=== PATIENT | male | born 1940 | race Caucasian/White ===

== ENCOUNTER 2024-09-22 12:01 | Emergency (ER) | payer MEDICARE, OTHER ==
[~2024-09-22] VITALS: Ht 177.8 cm; Wt 90.7 kg
--- OUTSIDE RECORDS SUMMARY | ~2024-09-22 | XMS | Continuity of Care Document ---
Demographics + + + | Address | [address] | | | [place] [address] | + + + | Preferred Language | Unknown | + + + | Marital Status | | + + + | Mormonism Affiliation | Unknown | + + + | Race | White | + + + | Ethnic Group | Not or | + + + Author + + + | Author | [facility] | + + + | Organization | [facility] | + + + | Address | [address] | | | [place] [address] | + + + | Phone | | + + + Care Team Providers + + + + | [employer] Name | Role | Phone | + + + + Unavailable | Unavailable | + + + + Unavailable | Unavailable | + + + + Allergies No information. Encounters No information. Functional Status No information. Immunizations No information. Medications + + + + | date | description | facility | + + + + | 2024-08-13 00:00 | apixaban 5 mg oral tablet | [facility] | + + + + | 2024-08-13 00:00 | eliquis 5 mg oral tablet | [facility] | + + + + | 2024-07-14 00:00 | lisinopril 5 mg oral | [facility] | | | tablet | | + + + + | 2024-07-14 00:00 | lisinopril 5 mg oral | [facility] | | | tablet | | + + + + | 2024-08-13 00:00 | isosorbide mononitrate 60 | [facility] | | | mg 24 hr extended release | | | | oral tablet | | + + + + | 2024-06-29 00:00 | omega-3 fatty acids | [facility] | + + + + | 2024-07-05 00:00 | omega-3 fatty acids | [facility] | + + + + | 2024-08-06 00:00 | omega-3 fatty acids | [facility] | + + + + | 2024-08-16 00:00 | omega-3 fatty acids | [facility] | + + + + | 2024-06-25 00:00 | pregabalin 75 mg oral | [facility] | | | capsule | | + + + + | 2024-08-06 00:00 | pregabalin 75 mg oral | [facility] | | | capsule | | + + + + | 2024-08-06 00:00 | metformin hydrochloride | [facility] | | | 500 mg oral tablet | | + + + + | 2024-08-06 00:00 | metformin hydrochloride | [facility] | | | 500 mg oral tablet | | + + + + | 2024-08-13 00:00 | metformin hydrochloride | [facility] | | | 500 mg oral tablet | | + + + + | 2024-08-13 00:00 | 24 hr metoprolol succinate | [facility] | | | 100 mg (as metoprolol | | | | succinate 95 mg equivalent | | | | to 100 mg metoprolol | | | | tartrate) extended release | | | | oral tablet | | + + + + Problems + + + + | date | description | facility | + + + + | 2024-06-29 11:50:18 | 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, lumbar region | | | | | | + + + + | 2024-07-05 12:24:15 | Prescription Refill | [facility] | | | Request | | + + + + | 2024-07-14 12:52:23 | Essential (primary) | [facility] | | | hypertension | | + + + + | 2024-08-06 08:05:55 | 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, | | | | unspecified | | + + + + | 2024-08-06 08:06:23 | 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, lumbar region | | | | | | + + + + | 2024-08-13 16:02:04 | Follow Up | [facility] | + + + + | 2024-08-16 00:00 | recurrent falls (finding) | [facility] | + + + + | 2024-08-16 00:00 | Frequent falls | [facility] | + + + + | 2024-08-16 12:16:05 | 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, | | | | unspecified | | + + + + | 2024-08-16 12:16:05 | Old myocardial infarction | [facility] | + + + + | 2024-08-16 12:16:05 | Unspecified atrial flutter | [facility] | | | | | + + + + | 2024-08-16 12:16:05 | 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, lumbar region | | | | | | + + + + | 2024-08-16 12:16:05 | Repeated falls | [facility] | + + + + | 2024-08-31 16:34:55 | Dizziness and giddiness | [facility] | + + + + | 2024-09-21 08:44:40 | 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, lumbar region | | | | | | + + + + Procedures + + + + | date | description | facility | + + + + | 2024-08-14 00:00 | MICROALBUMIN/CREATININE | [facility] | | | RATIO, URINE, RANDOM | | + + + + | 2024-08-14 00:00 | BLOOD COUNT COMPLETE | [facility] | | | AUTO&AUTO DIFRNTL WBC | | + + + + | 2024-08-14 00:00 | COMPREHENSIVE METABOLIC | [facility] | | | PANEL | | + + + + | 2024-08-14 00:00 | HEMOGLOBIN GLYCOSYLATED | [facility] | | | A1C | | + + + + | 2024-08-14 00:00 | BNP,NT PRO BNP | [facility] | + + + + Results/Labs +--------+--------+ +---------+--------+---------+ | test | date | facility | value | unit | notes | +--------+--------+ +---------+--------+---------+ + + | Result panel 1 | + + + + + + + + + | Specimen | (no date) | [facility] | (missing) | (missing) | (missing) | | collection | | [facility] | | | | | (procedure) | | | | | | + + + + + + + + + | Result panel 2 | + + + + + + + + + | Specimen | (no date) | [facility] | (missing) | (missing) | (missing) | | collection | | Medical | | | | | (procedure) | | | | | | + + + + + + + + + | Result panel 3 | + + + + + + + + + | Specimen | (no date) | [facility] | (missing) | (missing) | (missing) | | collection | | Medical | | | | | (procedure) | | | | | | + + + + + + + + + | Result panel 4 | + + + + + + + + + | Specimen | (no date) | [facility] | (missing) | (missing) | (missing) | | collection | | Medical | | | | | (procedure) | | | | | | + + + + + + + + + | Result panel 5 | + + + + + + + + + | Specimen | (no date) | [facility] | (missing) | (missing) | (missing) | | collection | | Medical | | | | | (procedure) | | | | | | + + + + + + + + + | Result panel 6 | + + + + + +--------+-----+ + | | 2024-08-14 | [facility] | 43.0 | % | (missing) | | (unavailable | 02:44 | Medical | | | | | ) | | | | | | + + + +--------+-----+ + + + | Result panel 7 | + + + + + +--------+------+ + | | 2024-08-14 | [facility] | 99.1 | fl | (missing) | | (unavailable | 02:44 | Medical | | | | | ) | | | | | | + + + +--------+------+ + + + | Result panel 8 | + + + + + +--------+------+ + | | 2024-08-14 | [facility] | 32.9 | pg | (missing) | | (unavailable | 02:44 | Medical | | | | | ) | | | | | | + + + +--------+------+ + + + | Result panel 9 | + + + + + +--------+--------+ + | | 2024-08-14 | [facility] | 33.3 | g/dL | (missing) | | (unavailable | 02:44 | Medical | | | | | ) | | | | | | + + + +--------+--------+ + + + | Result panel 10 | + + + + + +--------+-----+ + | | 2024-08-14 | [facility] | 12.4 | % | (missing) | | (unavailable | 02:44 | Medical | | | | | ) | | | | | | + + + +--------+-----+ + + + | Result panel 11 | + + + + + +-------+ + + | | 2024-08-14 | [facility] | 228 | (missing) | (missing) | | (unavailable | 02:44 | Medical | | | | | ) | | | | | | + + + +-------+ + + + + | Result panel 12 | + + + + + +-------+------+ + | | 2024-08-14 | [facility] | 9.3 | fl | (missing) | | (unavailable | 02:44 | Medical | | | | | ) | | | | | | + + + +-------+------+ + + + | Result panel 13 | + + + + + +--------+-----+ + | | 2024-08-14 | [facility] | 48.0 | % | (missing) | | (unavailable | 02:44 | Medical | | | | | ) | | | | | | + + + +--------+-----+ + + + | Result panel 14 | + + + + + +--------+-----+ + | | 2024-08-14 | [facility] | 36.1 | % | (missing) | | (unavailable | 02:44 | Medical | | | | | ) | | | | | | + + + +--------+-----+ + + + | Result panel 15 | + + + + + +--------+-----+ + | | 2024-08-14 | [facility] | 11.1 | % | (missing) | | (unavailable | 02:44 | Medical | | | | | ) | | | | | | + + + +--------+-----+ + + + | Result panel 16 | + + + + + +-------+-----+ + | | 2024-08-14 | [facility] | 3.7 | % | (missing) | | (unavailable | 02:44 | Medical | | | | | ) | | | | | | + + + +-------+-----+ + + + | Result panel 17 | + + + + + +-------+-----+ + | | 2024-08-14 | [facility] | 0.9 | % | (missing) | | (unavailable | 02:44 | Medical | | | | | ) | | | | | | + + + +-------+-----+ + + + | Result panel 18 | + + + + + +-------+-----+ + | | 2024-08-14 | [facility] | 0.2 | % | (missing) | | (unavailable | 02:44 | Medical | | | | | ) | | | | | | + + + +-------+-----+ + + + | Result panel 19 | + + + + + +-------+-----+ + | | 2024-08-14 | [facility] | 0.0 | % | (missing) | | (unavailable | 02:44 | Medical | | | | | ) | | | | | | + + + +-------+-----+ + + + | Result panel 20 | + + + + + +-------+ + + | | 2024-08-14 | [facility] | 2.8 | (missing) | (missing) | | (unavailable | 02:44 | Medical | | | | | ) | | | | | | + + + +-------+ + + + + | Result panel 21 | + + + + + +-------+ + + | | 2024-08-14 | [facility] | 2.1 | (missing) | (missing) | | (unavailable | 02:44 | Medical | | | | | ) | | | | | | + + + +-------+ + + + + | Result panel 22 | + + + + + +-------+ + + | | 2024-08-14 | [facility] | 0.7 | (missing) | (missing) | | (unavailable | 02:44 | Medical | | | | | ) | | | | | | + + + +-------+ + + + + | Result panel 23 | + + + + + +-------+ + + | | 2024-08-14 | [facility] | 0.2 | (missing) | (missing) | | (unavailable | 02:44 | Medical | | | | | ) | | | | | | + + + +-------+ + + + + | Result panel 24 | + + + + + +-------+ + + | | 2024-08-14 | [facility] | 0.1 | (missing) | (missing) | | (unavailable | 02:44 | Medical | | | | | ) | | | | | | + + + +-------+ + + + + | Result panel 25 | + + + + + +--------+ + + | | 2024-08-14 | [facility] | 0.01 | (missing) | (missing) | | (unavailable | 02:44 | [facility] | | | | | ) | | | | | | + + + +--------+ + + + + | Result panel 26 | + + + + + +-------+ + + | | 2024-08-14 | [facility] | 0.0 | (missing) | (missing) | | (unavailable | 02:44 | [facility] | | | | | ) | | | | | | + + + +-------+ + + + + | Result panel 27 | + + + + + + + + + | | 2024-08-14 | [facility] | Abnormal | (missing) | (missing) | | (unavailable | 02:44 | Medical | | | | | ) | | | | | | + + + + + + + + + | Result panel 28 | + + + + + +-------+ + + | | 2024-08-14 | [facility] | 5.9 | (missing) | (missing) | | (unavailable | 02:44 | Medical | | | | | ) | | | | | | + + + +-------+ + + + + | Result panel 29 | + + + + + +--------+ + + | | 2024-08-14 | [facility] | 4.34 | (missing) | (missing) | | (unavailable | 02:44 | Medical | | | | | ) | | | | | | + + + +--------+ + + + + | Result panel 30 | + + + + + +--------+--------+ + | | 2024-08-14 | [facility] | 14.3 | g/dL | (missing) | | (unavailable | 02:44 | Medical | | | | | ) | | | | | | + + + +--------+--------+ + + + | Result panel 31 | + + + + + +-------+ + + | | 2024-08-14 | [facility] | 140 | mmol/L | (missing) | | (unavailable | 02:58 | Medical | | | | | ) | | | | | | + + + +-------+ + + + + | Result panel 32 | + + + + + +-------+ + + | | 2024-08-14 | [facility] | 4.2 | mmol/L | (missing) | | (unavailable | 02:58 | Medical | | | | | ) | | | | | | + + + +-------+ + + + + | Result panel 33 | + + + + + +-------+ + + | | 2024-08-14 | [facility] | 100 | mmol/L | (missing) | | (unavailable | 02:58 | Medical | | | | | ) | | | | | | + + + +-------+ + + + + | Result panel 34 | + + + + + +------+ + + | | 2024-08-14 | [facility] | 29 | mmol/L | (missing) | | (unavailable | 02:58 | Medical | | | | | ) | | | | | | + + + +------+ + + + + | Result panel 35 | + + + + + +-------+---------+ + | | 2024-08-14 | [facility] | 9.6 | mg/dL | (missing) | | (unavailable | 02:58 | Medical | | | | | ) | | | | | | + + + +-------+---------+ + + + | Result panel 36 | + + + + + +-------+---------+ + | | 2024-08-14 | [facility] | 108 | mg/dl | (missing) | | (unavailable | 02:58 | Medical | | | | | ) | | | | | | + + + +-------+---------+ + + + | Result panel 37 | + + + + + +-------+---------+ + | | 2024-08-14 | [facility] | 0.9 | mg/dL | (missing) | | (unavailable | 02:58 | Medical | | | | | ) | | | | | | + + + +-------+---------+ + + + | Result panel 38 | + + + + + +------+---------+ + | | 2024-08-14 | [facility] | 16 | mg/dL | (missing) | | (unavailable | 02:58 | Medical | | | | | ) | | | | | | + + + +------+---------+ + + + | Result panel 39 | + + + + + +------+-------+ + | | 2024-08-14 | [facility] | 22 | U/L | (missing) | | (unavailable | 02:58 | Medical | | | | | ) | | | | | | + + + +------+-------+ + + + | Result panel 40 | + + + + + +------+-------+ + | | 2024-08-14 | [facility] | 17 | U/L | (missing) | | (unavailable | 02:58 | Medical | | | | | ) | | | | | | + + + +------+-------+ + + + | Result panel 41 | + + + + + +------+-------+ + | | 2024-08-14 | [facility] | 70 | U/L | (missing) | | (unavailable | 02:58 | Medical | | | | | ) | | | | | | + + + +------+-------+ + + + | Result panel 42 | + + + + + +-------+---------+ + | | 2024-08-14 | [facility] | 0.7 | mg/dL | (missing) | | (unavailable | 02:58 | Medical | | | | | ) | | | | | | + + + +-------+---------+ + + + | Result panel 43 | + + + + + +-------+--------+ + | | 2024-08-14 | [facility] | 6.8 | g/dL | (missing) | | (unavailable | 02:58 | Medical | | | | | ) | | | | | | + + + +-------+--------+ + + + | Result panel 44 | + + + + + +-------+--------+ + | | 2024-08-14 | [facility] | 4.2 | g/dL | (missing) | | (unavailable | 02:58 | Medical | | | | | ) | | | | | | + + + +-------+--------+ + + + | Result panel 45 | + + + + + +--------+ + + | | 2024-08-14 | [facility] | > 60 | (missing) | (missing) | | (unavailable | 02:58 | Medical | | | | | ) | | | | | | + + + +--------+ + + + + | Result panel 46 | + + + + + +---------+---------+ + | | 2024-08-14 | [facility] | 829.0 | pg/mL | (missing) | | (unavailable | 02:58 | Medical | | | | | ) | | | | | | + + + +---------+---------+ + + + | Result panel 47 | + + + + + + + + + | | 2024-08-14 | [facility] | Abnormal | (missing) | (missing) | | (unavailable | 02:58 | Medical | | | | | ) | | | | | | + + + + + + + + + | Result panel 48 | + + + + + +-------+-----+ + | | 2024-08-14 | [facility] | 6.2 | % | (missing) | | (unavailable | 02:59 | Medical | | | | | ) | | | | | | + + + +-------+-----+ + + + | Result panel 49 | + + + + + +-------+---------+ + | | 2024-08-14 | [facility] | 131 | mg/dL | (missing) | | (unavailable | 02:59 | Medical | | | | | ) | | | | | | + + + +-------+---------+ + + + | Result panel 50 | + + + + + + + + + | | 2024-08-14 | [facility] | Abnormal | (missing) | (missing) | | (unavailable | 02:59 | Medical | | | | | ) | | | | | | + + + + + + + + + | Result panel 51 | + + + + + +--------+--------+ + | | 2024-08-14 | [facility] | 24.0 | mg/L | (missing) | | (unavailable | 03:03 | Medical | | | | | ) | | | | | | + + + +--------+--------+ + + + | Result panel 52 | + + + + + +--------+ + + | | 2024-08-14 | [facility] | 25.8 | (missing) | (missing) | | (unavailable | 03:03 | Medical | | | | | ) | | | | | | + + + +--------+ + + + + | Result panel 53 | + + + + + +--------+---------+ + | | 2024-08-14 | [facility] | 93.2 | mg/dL | (missing) | | (unavailable | 03:03 | Medical | | | | | ) | | | | | | + + + +--------+---------+ + + + | Result panel 54 | + + + + + + + + + | | 2024-08-14 | [facility] | Abnormal | (missing) | (missing) | | (unavailable | 03:03 | Medical | | | | | ) | | | | | | + + + + + + + Social History + + + + | date | description | facility | + + + + | 2024-06-29 00:00 | Current smoker | [facility] | + + + + | 2024-07-05 00:00 | Current smoker | [facility] | + + + + | 2024-08-06 00:00 | Current smoker | [facility] | + + + + | 2024-08-16 00:00 | Current smoker | [facility] | + + + + Vital Signs + + +---------+---------+ | date | measurement | value | units | + + +---------+---------+ | 2024-08-13 00:00 | BMI | 24.94 | kg/m2 | + + +---------+---------+ | 2024-08-13 00:00 | BP_diastolic | 78 | mmHg | + + +---------+---------+ | 2024-08-13 00:00 | BP_systolic | 158 | mmHg | + + +---------+---------+ | 2024-08-13 00:00 | heart_rate | 84 | /min | + + +---------+---------+ | 2024-08-13 00:00 | o2_saturation | 96 | % | + + +---------+---------+ | 2024-08-13 00:00 | weight_metric | 78.83 | kg | + + +---------+---------+ | 2024-08-13 00:00 | weight_standard | 173.8 | lb | + + +---------+---------+"
[~2024-09-22 12:01] MED LIST: ATORVASTATIN CA40 MG PO; ELIQUIS5 MG PO; ISOSORBIDE MONO60 MG PO; LYRICA75 MG PO; METFORMIN HCL500 M3 PO; METOPROLOL SUC100 MG PO; OMEGA 3-6-9 11200 M1 PO; VENTOLIN HFA18 GM PO; VITAMIN D325 MCG PO; ZESTRIL5 MG PO
[2024-09-22] MEDS ORDERED: TRAZODONE HCL50 MG PO (12:11)
[2024-09-22] MEDS ORDERED: ASPIRIN 81 MG CHEW PO ONE (12:15)
[2024-09-22] MEDS ORDERED: NITROGLYCERIN 0.4 MG SUBL SL PRN (12:15)
[2024-09-22 12:20] LABS: BASOPHILS 0.5 % (0-2); EOSINOPHILS 2.5 % (0-6); HEMATOCRIT 42.8 % (35.0-50.0); LYMPHOCYTES 20.6 % (24-44); MCHC 32.7 g/dl (30-36); MCV 101.1 fl (81-99); MONOCYTES 7.9 % (0-12); NEUTROPHILS 68.5 % (39-80); PLATELET COUNT 217 K/uL (140-440); RBC 4.23 M/ul (4.3-5.7); RDW 13.6 (10.5-15.0)
[2024-09-22 12:30] LABS: INR 1.26 (0.80-1.30); PROTIME 15.7 Sec (11.2-14.2)
[2024-09-22 12:40] LABS: ALBUMIN/GLOBULIN RATIO 1.29 (1.1-2.4); ANION GAP 11.6 (7-21); BUN/CREATININE RATIO 10.18 (6.0-28.6); CALCIUM 9.5 mg/dL (8.5-10.1); CREATININE, SERUM 1.08 mg/dL (0.70-1.30); MAGNESIUM 1.4 mg/dL (1.8-2.4); POTASSIUM 3.6 mmol/L (3.5-5.1); PROTEIN, TOTAL 7.1 g/dL (6.4-8.2)
[2024-09-22] MEDS ORDERED: MAGNESIUM SULFATE 2 GM/50 ML BAG IV ONE (13:15)
[2024-09-22] MEDS ORDERED: METOPROLOL TARTRATE 5 MG/5 ML VIAL IV ONE (13:30)
[2024-09-22] MEDS ORDERED: SODIUM CHLORIDE 0.9% 500 ML IV PRN (14:00)
[2024-09-22] MEDS ORDERED: dilTIAZem HCL 25 MG/5 ML VIAL IV ONE (15:00)
[2024-09-22 16:23] VITALS: BP 157/97
--- NOTE | 2024-09-24 17:07 | EKG ---
[facility] [address] [place] [address] Signed Sinus tachycardia Nonspecific ST and T wave abnormality Abnormal ECG When compared with ECG of 22-SEP-2024 11:56, (Unconfirmed) Sinus rhythm has replaced Atrial flutter ST no longer depressed in Inferior leads Nonspecific T wave abnormality no longer evident in Lateral leads Confirmed by Abbe Corbett DO ([id number]) on 09/24/2024 5:07:11 PM Electronically Signed By: ABBE CORBETT DO 09/24/24 1707 PATIENT NAME: BRIE TORRES Electrocardiogram DATE OF : 40 PHYSICIAN: ABBE CORBETT DO REPORT #: [id number] REPORT IS CONFIDENTIAL AND NOT TO BE RELEASED WITHOUT AUTHORIZATION
== END 2024-09-22 16:23 | disposition home or self-care (01) ==
LOC: ED 12:01
PROVIDERS: Internal Medicine
DX: I48.92 Unspecified atrial flutter (principal); I48.91 Unspecified atrial fibrillation; I11.0 Hypertensive heart disease with heart failure; I50.9 Heart failure, unspecified; E11.9 Type 2 diabetes mellitus without complications; I25.10 Atherosclerotic heart disease of native coronary artery without angina pectoris; Z95.1 Presence of aortocoronary bypass graft; Z95.5 Presence of coronary angioplasty implant and graft; Z79.01 Long term (current) use of anticoagulants; Z79.84 Long term (current) use of oral hypoglycemic drugs; Z79.899 Other long term (current) drug therapy
CPT/HCPCS: 36415; 71045; 80053; 83735; 83880; 84484; 85025; 85610; 96374; 96375; 99285-25; J3475; J7040